=== PATIENT | female | born 1955 | race Caucasian/White ===

== ENCOUNTER 2020-06-01 07:42 | Day surgery (SDC) | payer MEDICARE, BC, SELFPAY ==
[2020-05-24 12:39] VITALS: BMI 31.9
--- NOTE | 2020-05-31 08:36 | HO.ANESPROP2 ---
Documented by User: Haydee Bueno 05/31/20 08:38 HPI - Anesthesia Eval Consult details Narrative: 65yo F for Upper Endoscopy [facility] Past Medical History Medical History Bowel obstruction DVT (deep venous thrombosis) GERD (gastroesophageal reflux disease) History of hemochromatosis Hx of cardiac murmur Hx of diverticulitis of colon Hx of ectopic Lab test negative for COVID-19 virus Surgical History Surgical History H/O colonoscopy History of esophagogastroduodenoscopy (EGD) History of reversal of tubal ligation Hx of section Hx of inguinal hernia repair Hx of total knee replacement Hx of total shoulder replacement Hx of tubal ligation Social History Social History Smoking Status: Never smoker Use of substances other than those prescribed or required for medical reasons: No Advance Directives Information Provided: No Recently lost weight without trying: No Meds Allergies Allergy/AdvReac Type Severity Reaction Status Date / Time No Known Allergies Allergy Verified 05/24/20 12:48 Home Medications Medication Instructions Recorded Confirmed Type acetaminophen [Tylenol] 650 mg PO Q6H PRN 05/24/20 05/24/20 History cholecalciferol (vitamin D3) 50 mcg PO DAILY 05/24/20 05/24/20 History [Vitamin D3] docusate sodium [Stool Softener] 100 mg PO BID 05/24/20 05/24/20 History hydrochlorothiazide 25 mg PO DAILY 05/24/20 05/24/20 History irbesartan 300 mg PO DAILY 05/24/20 05/24/20 History lactobacillus comb no.10 20,000 mmu cells PO DAILY 05/24/20 05/24/20 History [Probiotic] melatonin 10 mg PO BEDTIME 05/24/20 05/24/20 History pantoprazole 40 mg PO BID 05/24/20 05/24/20 History polyethylene glycol 3350 [Miralax] 17 g PO DAILY 05/24/20 05/24/20 History sertraline [Zoloft] 50 mg PO BEDTIME 05/24/20 05/24/20 History Exam Exam Date and Time: May 31, 2020 0836 Height,Weight and Vital Signs: Height 5 ft 1 in Weight 76.657 kg Assessment and Plan Assessment Anesthesia Assessment: Chart Reviewed Documented by User: Zechariah Tejada MD 06/01/20 07:52 [facility] Past Medical History Medical History Bowel obstruction DVT (deep venous thrombosis) GERD (gastroesophageal reflux disease) History of hemochromatosis Hx of cardiac murmur Hx of diverticulitis of colon Hx of ectopic Lab test negative for COVID-19 virus Surgical History Surgical History H/O colonoscopy History of esophagogastroduodenoscopy (EGD) History of reversal of tubal ligation Hx of section Hx of inguinal hernia repair Hx of total knee replacement Hx of total shoulder replacement Hx of tubal ligation Social History Social History Smoking Status: Never smoker Use of substances other than those prescribed or required for medical reasons: No Advance Directives Information Provided: No Recently lost weight without trying: No Meds Allergies Allergy/AdvReac Type Severity Reaction Status Date / Time No Known Allergies Allergy Verified 05/24/20 12:48 Home Medications Medication Instructions Recorded Confirmed Type acetaminophen [Tylenol] 650 mg PO Q6H PRN 05/24/20 05/24/20 History cholecalciferol (vitamin D3) 50 mcg PO DAILY 05/24/20 05/24/20 History [Vitamin D3] docusate sodium [Stool Softener] 100 mg PO BID 05/24/20 05/24/20 History hydrochlorothiazide 25 mg PO DAILY 05/24/20 05/24/20 History irbesartan 300 mg PO DAILY 05/24/20 05/24/20 History lactobacillus comb no.10 20,000 mmu cells PO DAILY 05/24/20 05/24/20 History [Probiotic] melatonin 10 mg PO BEDTIME 05/24/20 05/24/20 History pantoprazole 40 mg PO BID 05/24/20 05/24/20 History polyethylene glycol 3350 [Miralax] 17 g PO DAILY 05/24/20 05/24/20 History sertraline [Zoloft] 50 mg PO BEDTIME 05/24/20 05/24/20 History Exam Airway Mallampati Class: II TM Dist: >3cm Neck ROM: Full Loose/Missing/Broken Teeth: No Heart: RRR Lungs: NL Other: AO Assessment and Plan Assessment Anesthesia Assessment: Anesthesia Plan Discussed and Chart Reviewed Final Anesthetic Review NPO: Yes ASA Class: III Final Preanesthetic Review: No Changes in Pt Med Stat, Meds/Allgs Chart Reviewed, Consent Obtained/Reviewed and Anes Risks/Benef Reviewed Patient Risk: Intermediate Procedure Risk: Low Anesthetic Plan Anesthetic Plan: MAC: Disposition: Standard PACU
[2020-06-01 08:12] VITALS: BP 119/75; PULSE 77; RESP 18; TEMP 36.5; O2SAT 100
--- NOTE | 2020-06-01 08:12 | MHC.SHP ---
Pre-Procedural Eval Section B Chief Complaint: barretts Details of Present Illness: see H&P no changes Relevant Family History (Specify if Yes): No Relevant Social History: None Present Medications: see Short Stay Collaborative assessment Medical History: No relevant PMH History of Previous Operations: No relevant previous surgery Allergies: Allergies Allergy/AdvReac Type Severity Reaction Status Date / Time No Known Allergies Allergy Verified 05/24/20 12:48 Review of Systems Sugical H&P ROS: Negative: Constitution, Cardiovascular, Respiratory, Neurological, Psychiatric, Hem-Onc, Allergic/Immunologic, Gastrointestinal, Genitourinary, Musculoskeletal, Integumentary, Endocrine and Eyes/Ears/Nose/Throat Exam Surgical H&P Exam: Normal: HEENT, Normal: Heart, Normal: Lungs, Normal: Extremities, Normal: Abdomen, Normal: Skin and Normal: Neurological Plan Diagnosis/Plan: Unchanged I have reviewed the history and physical and performed a pertinent physical examination on my patient. No changes have occurred unless specified.
[2020-06-01] MEDS: Lactated Ringers 1,000 ML 100 ML IVCONT (08:16)
[2020-06-01 08:37] VITALS: BP 107/63; PULSE 85; RESP 16; TEMP 36.6; O2SAT 95
--- NOTE | 2020-06-01 08:41 | PM.OP ---
Brief Operative Note Date of Service: 06/01/20 Pre-op diagnosis: Barretts Post-op diagnosis: same (erosive esophagitis, hiatal hernia) Procedure: egd Surgeon: Carlos Dewey Anesthesia: MAC Estimated blood loss (mL): 5 Pathology: other (antral bxs, gastric polyp bxs, egj bxs) Condition: stable Disposition: PACU
[2020-06-01 08:52] VITALS: BP 106/68; PULSE 74; RESP 17; TEMP 36.6; O2SAT 96
--- NOTE | 2020-06-01 09:14 | HO.POSTANES ---
Post Anesthesia Evaluation Post Anesthesia Evaluation Vital Signs: Vital Signs Temp Pulse Resp BP Pulse Ox 06/01/20 08:52 97.8 F 74 17 106/68 96 06/01/20 08:37 97.8 F 85 16 107/63 95 06/01/20 08:12 97.7 F 77 18 119/75 100 Anesthesia: Monitored Mental Status: Awake Pain Control: Satisfactory Nausea/Vomiting: None Hydration: Adequate Anesthesia-Related Issues: No Anes. Related Issues
--- NOTE | 2020-06-01 09:43 | OP_ITS ---
SURGEON: Carlos Dewey MD INDICATIONS: Erazo's esophagus. PREOPERATIVE DIAGNOSIS: POSTOPERATIVE DIAGNOSIS: PROCEDURE PERFORMED: Upper endoscopy with biopsy. ESTIMATED BLOOD LOSS: COMPLICATIONS: ANESTHESIA: ASSISTANTS: SPECIMENS: MEDICATIONS: Monitored anesthesia care. DESCRIPTION OF PROCEDURE: History and physical performed. The risks and benefits of the procedure were explained to the patient and informed consent was obtained. The patient was placed in the left lateral decubitus position. The Olympus video gastroscope was introduced into the esophagus, stomach, and duodenum. Examination was performed, and the scope was removed. She tolerated the procedure well and was returned to recovery area in stable condition. FINDINGS: Esophagus: The esophagus showed a 10 mm area of ulceration/erosion at the EG junction. There was no active bleeding. Biopsies were obtained from the EG junction. There was a 5 cm hiatal hernia. Stomach: Stomach showed multiple gastric polyps, largest measuring approximately 15 mm, several of these were biopsied. They appeared hyperplastic and were present in the body and fundus. Antral biopsies were also obtained to rule out H pylori. Duodenum: The bulb and second portion were normal. IMPRESSION: 1. Erosive esophagitis. 2. Erazo's esophagus. RECOMMENDATION: Follow up the biopsy results. MD DAVON Faria/MABEL / [id number]
== END 2020-06-01 09:40 | disposition home or self-care (01) ==
PROVIDERS: PCP Internal Medicine; Visit Provider Internal Medicine Gastroenterology
PROC: 0DJ08ZZ Inspection of Upper Intestinal Tract, Via Natural or Artificial Opening Endoscopic (ICD-10-PCS; CPT 43235; principal; 2020-06-01 08:50)
DX: K22.70 Barrett's esophagus without dysplasia (principal); K20.0 Eosinophilic esophagitis; K31.7 Polyp of stomach and duodenum; K44.9 Diaphragmatic hernia without obstruction or gangrene; E83.119 Hemochromatosis, unspecified; Z79.899 Other long term (current) drug therapy
CPT/HCPCS: 43239; 88305; 88342

== ENCOUNTER 2021-03-30 09:26 | Outpatient (REF) | payer MEDICARE, OTHER, SELFPAY ==
--- NOTE | ~2021-03-30 | FL_ITS ---
EXAMINATION: FL BARIUM SWALLOW CLINICAL INFORMATION: Dysphagia COMPARISON: None TECHNIQUE: Barium swallow examination is performed using fluoroscopic evaluation in addition to multiple fluoroscopic spot views. The patient is imaged both upright and prone and using both thick and thin sulfate along with effervescent granules. Barium tablet was also administered. Fluoroscopy time: 1 minutes DAP: 8.2 Gycm2 Images: 44 FINDINGS: The swallowing mechanism is normal. There is minimal laryngeal penetration seen when patient swallows. No aspiration is seen. The esophagus is dilated. There is abnormal esophageal motility. There is a moderate size esophageal hernia probably representing a hiatal hernia. There is significant gastroesophageal reflux. No mass, stricture or mucosal irregularity is appreciated. The barium tablet passed freely into the stomach. FL/FL barium swallow IMPRESSION: Dilated esophagus and abnormal esophageal motility. Small fixed esophageal hernia probably representing a hiatal hernia and gastroesophageal reflux. Mild laryngeal penetration when the patient swallows. No aspiration.
--- NOTE | 2023-09-12 13:49 | MHC.SHP ---
Pre-Procedural Eval Section A - 24 Hr Update-Section A only Date of Service: 09/12/23 The patient is an INPATIENT: No Changes since office visit: No Cold of Flu in the past 2 weeks, No New Medical Problems, No Changes in Medication and No Patient answered all questions The patient has been examined within 24 hours of the surgical procedure. The History & Physical has been completed within 30 days and I have reviewed it.: Yes Section B - Complete if H&P > 30 days Chief Complaint: DYSPHAGIA Allergies: Allergies Allergy/AdvReac Type Severity Reaction Status Date / Time No Known Allergies Allergy Verified 05/24/20 12:48 Plan I have reviewed the history and physical and performed a pertinent physical examination on my patient. No changes have occurred unless specified. Time Spent With Patient Time: Total time managing care of this patient today ____ minutes.
== END 2021-03-30 09:27 | disposition home or self-care (01) ==
LOC: HO.XRAY 09:26
PROVIDERS: PCP Internal Medicine; Visit Provider Internal Medicine Gastroenterology
DX: R13.10 Dysphagia, unspecified (principal)
CPT/HCPCS: 74220

== ENCOUNTER 2023-09-12 13:25 | Day surgery (SDC) | payer MEDICARE, OTHER, SELFPAY ==
--- NOTE | 2023-09-11 08:54 | HO.ANESPROP2 ---
HPI - Anesthesia Eval Consult details Narrative: 68yo F for Upper Endoscopy Hemochromatosis with therapeutic phlebs PMFSH Past Medical History Medical History (Updated 09/10/23 @ 11:04 by Miladis Bhakta RN) Hx of ectopic History of hemochromatosis Bowel obstruction Hx of diverticulitis of colon DVT (deep venous thrombosis) GERD (gastroesophageal reflux disease) Hx of cardiac murmur Surgical History Surgical History (Updated 09/10/23 @ 11:02 by Miladis Bhakta RN) Hx of inguinal hernia repair History of reversal of tubal ligation Hx of tubal ligation Hx of section Hx of total knee replacement Hx of total shoulder replacement History of esophagogastroduodenoscopy (EGD) H/O colonoscopy Meds Allergies Allergy/AdvReac Type Severity Reaction Status Date / Time No Known Allergies Allergy Verified 05/24/20 12:48 Home Medications ?Medication ?Instructions ?Recorded ?Confirmed ?Last Taken ?Type acetaminophen 325 mg tablet 650 mg PO Q6H PRN Pain 05/24/20 05/24/20 Unknown History (Tylenol) cholecalciferol (vitamin D3) 50 50 mcg PO DAILY 05/24/20 05/24/20 Unknown History mcg (2,000 unit) capsule (Vitamin D3) docusate sodium 100 mg capsule 100 mg PO BID 05/24/20 05/24/20 Unknown History (Stool Softener) hydrochlorothiazide 25 mg tablet 25 mg PO DAILY 05/24/20 05/24/20 Unknown History irbesartan 300 mg tablet 300 mg PO DAILY 05/24/20 05/24/20 Unknown History lactobacillus comb no.10 20 20,000 mmu cells PO DAILY 05/24/20 05/24/20 Unknown History billion cell capsule (Probiotic) melatonin 10 mg tablet 10 mg PO BEDTIME 05/24/20 05/24/20 Unknown History pantoprazole 40 mg tablet,delayed 40 mg PO BID 05/24/20 06/01/20 06/01/20 06:45 History release polyethylene glycol 3350 17 gram 17 g PO DAILY 05/24/20 05/24/20 Unknown History oral powder packet (Miralax) sertraline 50 mg tablet (Zoloft) 50 mg PO BEDTIME 05/24/20 05/24/20 Unknown History Exam Height,Weight and Vital Signs: Height 5 ft 1 in Assessment and Plan Assessment Anesthesia Assessment: Chart Reviewed
[2023-09-12 13:54] VITALS: BMI 32.9
[2023-09-12 13:59] VITALS: BP 128/73; PULSE 63; RESP 16; TEMP 36.9; O2SAT 97
--- NOTE | 2023-09-12 14:03 | PC.NURSE ---
IV insertions by Ewa Mcrae RN
--- NOTE | 2023-09-12 14:50 | P.CONAN_ITS ---
[facility] Past Medical History Medical History Hx of ectopic History of hemochromatosis Bowel obstruction Hx of diverticulitis of colon DVT (deep venous thrombosis) GERD (gastroesophageal reflux disease) Hx of cardiac murmur Family History Family history of problems with anesthesia: No Surgical History Surgical History Hx of inguinal hernia repair History of reversal of tubal ligation Hx of tubal ligation Hx of section Hx of total knee replacement Hx of total shoulder replacement History of esophagogastroduodenoscopy (EGD) H/O colonoscopy History of Problems with Anesthesia: No Social History Social History Patient Tobacco Use Status: Never used Tobacco Use of substances other than those prescribed or required for medical reasons: No Are you DNR?: No Advance Directives: No Advance Directives Information Provided: Yes Meds Allergies Allergy/AdvReac Type Severity Reaction Status Date / Time No Known Allergies Allergy Verified 05/24/20 12:48 Active Medications: Current Medications Lactated Ringer's (Lr) 1,000 mls @ 100 mls/hr IVCONT .Q10H PROMISE Home Medications ?Medication ?Instructions ?Recorded ?Confirmed ?Last Taken ?Type acetaminophen 325 mg tablet 650 mg PO Q6H PRN Pain 05/24/20 05/24/20 Unknown History (Tylenol) cholecalciferol (vitamin D3) 50 50 mcg PO DAILY 05/24/20 05/24/20 Unknown History mcg (2,000 unit) capsule (Vitamin D3) docusate sodium 100 mg capsule 100 mg PO BID 05/24/20 05/24/20 Unknown History (Stool Softener) hydrochlorothiazide 25 mg tablet 25 mg PO DAILY 05/24/20 05/24/20 Unknown History lactobacillus comb no.10 20,000 mmu cells PO DAILY 05/24/20 05/24/20 Unknown History billion cell capsule (Probiotic) melatonin 10 mg tablet 10 mg PO BEDTIME 05/24/20 05/24/20 Unknown History polyethylene glycol 3350 17 gram 17 g PO DAILY 05/24/20 05/24/20 Unknown History oral powder packet (Miralax) sertraline 50 mg tablet (Zoloft) 50 mg PO BEDTIME 05/24/20 05/24/20 Unknown History omeprazole 40 mg capsule,delayed 40 mg PO DAILY 09/12/23 09/12/23 Unknown History release Exam Height,Weight and Vital Signs: Height 5 ft 1 in Weight 78.925 kg Last Vital Signs Temp 98.4 F 09/12/23 13:59 Pulse 63 09/12/23 13:59 Resp 16 09/12/23 13:59 BP 128/73 09/12/23 13:59 Pulse Ox 97 09/12/23 13:59 O2 Del Method Room Air 09/12/23 13:59 Airway Mallampati Class: II TM Dist: >3cm Neck ROM: Full Heart: rrr Assessment and Plan Final Anesthetic Review Family History of Problems with Anesthesia: No History of Problems with Anesthesia: No NPO: Yes ASA Class: II Final Preanesthetic Review: No Changes in Pt Med Stat, Meds/Allgs Chart Reviewed, Consent Obtained/Reviewed and Anes Risks/Benef Reviewed Patient Risk: Intermediate Procedure Risk: Low Anesthetic Plan Anesthetic Plan: MAC: Disposition: Standard PACU
[2023-09-12] MEDS: Lactated Ringers 1,000 ML 100 ML IVCONT (15:07)
--- NOTE | 2023-09-12 15:12 | MHC.SHP ---
Pre-Procedural Eval Section A - 24 Hr Update-Section A only Date of Service: 09/12/23 The patient is an INPATIENT: No Changes since office visit: No Cold of Flu in the past 2 weeks, No New Medical Problems, No Changes in Medication and No Patient answered all questions The patient has been examined within 24 hours of the surgical procedure. The History & Physical has been completed within 30 days and I have reviewed it.: Yes Section B - Complete if H&P > 30 days Chief Complaint: Erazo's esophagus,epigastric pain Allergies: Allergies Allergy/AdvReac Type Severity Reaction Status Date / Time No Known Allergies Allergy Verified 05/24/20 12:48 Plan I have reviewed the history and physical and performed a pertinent physical examination on my patient. No changes have occurred unless specified. Time Spent With Patient Time: Total time managing care of this patient today ____ minutes.
[2023-09-12 15:40] VITALS: BP 117/68; PULSE 65; RESP 18; TEMP 36.4; O2SAT 94
[2023-09-12 15:55] VITALS: BP 133/83; PULSE 60; RESP 20; TEMP 36.6; O2SAT 97
--- NOTE | 2023-09-12 21:47 | OP_ITS ---
DATE OF SERVICE: 09/12/2023 SURGEON: Carlos Dewey MD INDICATIONS: Erazo esophagus and epigastric pain. PREOPERATIVE DIAGNOSIS: POSTOPERATIVE DIAGNOSIS: PROCEDURE PERFORMED: Upper endoscopy with biopsy. ESTIMATED BLOOD LOSS: COMPLICATIONS: ANESTHESIA: Monitored anesthesia care. ASSISTANTS: SPECIMENS: DESCRIPTION OF PROCEDURE: A history and physical was performed. The risks and benefits of the procedure were explained to the patient, and informed consent was obtained. The patient was placed in the left lateral decubitus position. The Olympus video gastroscope was introduced into the esophagus, stomach, and duodenum. Examination was performed. The scope was removed. She tolerated the procedure well and was returned to the recovery area in stable condition. FINDINGS: Esophagus: The esophagus was normal. There was no mass lesion. There was a less than 2 cm segment of Erazo esophagus tissue with no associated esophagitis or raised areas. Biopsies were obtained from the EG junction. There was a small sliding hiatal hernia. Stomach: The stomach showed multiple benign-appearing polyps. Two of these were biopsied in the body on the greater curvature. The largest measured approximately 8 to 10 mm. Antral biopsies were also obtained. Duodenum: The bulb and 2nd portion were normal. IMPRESSION: 1. Erazo esophagus. 2. Gastric polyps. RECOMMENDATION: Follow up the biopsy results. MD DAVON Faria/MABEL / [id number]
== END 2023-09-12 16:02 | disposition home or self-care (01) ==
PROVIDERS: PCP Internal Medicine; Visit Provider Internal Medicine Gastroenterology
PROC: 0DJ08ZZ Inspection of Upper Intestinal Tract, Via Natural or Artificial Opening Endoscopic (ICD-10-PCS; CPT 43235; principal; 2023-09-12 14:40)
DX: K22.70 Barrett's esophagus without dysplasia (principal); R10.13 Epigastric pain; K31.7 Polyp of stomach and duodenum; K44.9 Diaphragmatic hernia without obstruction or gangrene; K21.9 Gastro-esophageal reflux disease without esophagitis; I10 Essential (primary) hypertension; K57.30 Diverticulosis of large intestine without perforation or abscess without bleeding; Z79.899 Other long term (current) drug therapy; Z90.49 Acquired absence of other specified parts of digestive tract; Z98.890 Other specified postprocedural states
CPT/HCPCS: 43239; 88305; 88313; 88342; J2704

== ENCOUNTER 2025-03-31 08:19 | Day surgery (SDC) | payer MEDICARE, OTHER, SELFPAY ==
--- OUTSIDE RECORDS SUMMARY | 2023-09-12 10:00 | XMS_ITS ---
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 Problem Benign neoplasm of stomach (78506569) Gastric polyps (K31.7) Active confirmed Encounters Encounter Location Date Provider [place] [facility] [place] [facility] [address] [place] [id number] 09/12/2023 Carlos Dewey Jr Dyer''s esophagus without dysplasia K22.70 ; Gastric polyps K31.7 and Epigastric pain R10.13 Assessments Encounter Date Diagnosis (ICD Code) Assessment Notes Treatment Notes Treatment Clinical Notes Section Notes 09/12/2023 Dyer''s esophagus without dysplasia (ICD-10 - K22.70) 09/12/2023 Gastric polyps (ICD-10 - K31.7) 09/12/2023 Epigastric pain (ICD-10 - R10.13) Plan Of Treatment Next Appt Details Provider Name:Carlos acosta Jr, 03/13/2025 09:10:00 AM, [address] [place] [address], [phone], Provider Name:Carlos acosta Jr, 10/21/2025 09:20:00 AM, [address] [place] [address], [address], [place], [address], Progress Notes * LUCY JANSENOB:[birth year] (69 yo F)Acc No.[id number]:09/12/2023 EGD/MAC Patient: RADHA HOLBROOK Provider: Barry Dewey MD :1955 A ge:68 Y S ex:Female Date:09/12/2023 Address:[address] [place], [place] [id number] Pcp:Michael Evans MD Subjective: * Chief Complaints: * 1 . Dyer's ,epigastric pain. * Medical History: Objective: * Vitals: Assessment: * Assessment: 1. B arrett''s esophagus without dysplasia - K22.70 (Primary) 2 . G astric polyps - K31.7 3 . E pigastric pain - R10.13 Plan: * Treatment: * Procedure Codes: 4 3239 UPPER GI ENDOSCOPY, BIOPSY * * The named appointment provid er may or may not be the originator of this progress note, and it is not deemed complete until electronically signed by the appointment provider. Sign off status: Pending * Provider: Barry Dewey MD Date: 0 09/12/2023 Generated for Claire mckeon/Bill/Ottoitting on: 0 02/11/2025 03:55 PM EDT
--- OUTSIDE RECORDS SUMMARY | 2025-02-11 15:55 | XMS_ITS | Patient Health Record ---
[facility] Address [address] [place] [address] Care Team Providers Care Night Warehouse Manager Name Role Phone Cristina Grayson MD, Michael Primary Care Provider Unavail able Kathy Sullivan Unavailable [phone] Reason For Referral No Information Medications Medication SIG (Take, Route, Frequency, Duration) Notes Start Date End Date Status Calcium Active Multi Vitamin Active Stool Softener Activ e Probiotic Active Sertraline HCl 50 MG 1 tablet Orally Onc e a day Active LamISIL 250 MG 1 tablet Orally Once a day for 7 days stop for 3 weeks repeat cycle for 12 months; Duration: 60 days 07/20/2017 Not-Taking Pantoprazole Sodium 40 MG 1 tablet Orall y Once a day Active Irbesartan 300 MG 1 tablet Orally Once a day Active Social History Tobacco Use: Social History Observation Description Date Details (start date - stop date) Never Smoker NA - NA Tobacco Use/Smoking Question Answer Notes Are you a: nonsmoker Additional Findings: Tobacco Non-User Current no n-smoker Alcohol Screen Question Answer Notes Did you have a drink containing alcohol in the p ast year? No Points 0 Interpretation Negative Tobacco use other than smoking: Question Answer Notes Are you an other tobacco user? No Problems No Known Problems Plan Of Treatment Pending Test Test Name Order Date *Liver Function Test (LFT) 06/29/2017 [id number] NAIL, 6 OR MORE 06/29/2017 [id number] NAIL, 6 OR MORE 09/25/2018 [id number] Plate 06/29/2017 [id number] Plate 09/25/2018 Insurance Providers Payer Name Payer Address Payer Phone Subscriber Number Group Number Insured Name Patient Relationship to Insured Coverage Start Date Coverage End Date [facility] [address] [place] [address] [id number] Farzana Alejandro Self - patient is the insured Medical (General) History Medical History History ICD Code Arthritis Back,Hip,and Knee pain Diverticulosis High blood pressure Reflux ( GERD) Measles Chicken pox Surgical History Surgery Date(Month/Year) 4 c sections tubal reversal diverticulitis hernia breast surgery
--- OUTSIDE RECORDS SUMMARY | 2025-02-11 15:56 | XMS_ITS | Patient Health Record ---
Author Organization [facility] Address [address] [place] [address] Care Team Providers Care Warehouse Selector Name Role Phone Michael Evans MD Primary Care Provider Carlos Lozano Jr Unavailable Allergies No Known Allergies Reason For Referral No Information Medications Medication SIG (Take, Route, Frequency, Duration) Notes Start Date End Date Status Valsartan 40 MG 1 tablet Orally Twic e a day Active Aspirin 81 81 MG 1 tablet Orally Once a day Active Metoprolol Succinate ER 25 MG 1 tablet Oral Once a day for 30 days Active Rosuvastatin Calcium 20 MG 1 tablet Orally Once a day Active MiraLax Active Stool Softener Activ e Probiotic - Orally Active Vitamin D3 50 MCG (1999 UT) 2 tab Orally Once a day Acti ve One A Day Women 50 Plus - as directed Orally Active Famotidine 20 MG 1 tablet at bedtime as needed Orally Once a day for 30 day(s) Active Wegovy 0.25 MG/0.5ML 0.5 mL Subcutaneous for 30 day(s) Active Omeprazole 40 mg TAKE 1 CAPSULE DAILY 30 MINUTES BEFORE MORNING MEAL Active Candesartan Cilexetil 32 MG 1 tablet Orally Once a day for 30 day(s) Active Immunizations Vaccine Route Administration Date Status Comme nts Influenza Unknown 02/18/2020 Administered Influenza Unknown 2021 Administered Influenza Unknown 04/25/2022 Administered Influenza Unknown 04/04/2023 Administered Influenza Unknown 04/09/2024 Administered Social History Tobacco Use: Social History Observation Description Date Details (start date - stop date) Never Smoker NA - NA Tobacco Use/Smoking Question Answer Notes Patient is a nonsmoker Alcohol Screen Question Answer Notes Did you have a drink containing alcohol in the p ast year? 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) Active confirmed Problem 10298295 Cough (R05) Active confirmed Problem 273543049 Gastroesophageal reflux disease without esophagitis (K21.9) Active confirmed Problem 29761611 Hiatal hernia (K44.9) Active confirmed Problem Benign neoplasm of stomach (06330524) Gastric polyps (K31.7) Active confirmed Problem 38216753 Dysphagia, unspecified type (R13.10) Active confirmed Problem Erazo's esophagus (242989155) Erazo''s esophagus without dysplasia (K22.70) Active confirmed Vital Signs Temperature 97.3 degrees Fahrenheit 10/20/2024 Blood pressure diastolic 01 mm Hg 10/20/2024 Height 61 in 10/20/2024 Blood pressure systolic 001 mm Hg 10/20/2024 Weight 177.2 lbs 10/20/2024 BMI 33.48 kg/m2 10/20/2024 Encounters Encounter Location Date Provider Diagnosis [facility] [address] [place] [phone] 04/23/2024 Carlos Dewey Jr Erazo's esophagus without dysplasia K22.70 and Colon cancer screening Z12.11 [facility] [address] [place] [phone] 10/20/2024 Carols Dewey Jr Erazo's esophagus without dysplasia K22.70 and Colon cancer screening Z12.11 [facility] [address] [place] [phone] 02/11/2025 Carlos Dewey Jr Assessments Encounter Date Diagnosis (ICD Code) Assessment Notes Treatment Notes Treatment Clinical Notes Section Notes 04/23/2024 Colon cancer screening (ICD-10 - Z12.11) Farzana is doing well. She will continue omeprazole. We discussed diet, lifestyle modifications, and weight management regarding the treatment of reflux. She will stop famotidine in the evening and see if her reflux remain under good control. Colon cancer screening will be addressed at her followup visit in 6 months when she will be due for repeat colonoscopy. She'll call she has problems before then. 04/23/2024 Erazo's esophagus without dysplasia (ICD-10 - K22.70) Erazo esophagus material was printed Farzana is doing well. She will continue omeprazole. We discussed diet, lifestyle modifications, and weight management regarding the treatment of reflux. She will stop famotidine in the evening and see if her reflux remain under good control. Colon cancer screening will be addressed at her followup visit in 6 months when she will be due for repeat colonoscopy. She'll call she has problems before then. 10/20/2024 Colon cancer screening (ICD-10 - Z12.11) Currently, she is doing well with her GI issues. She will continue her present regimen for reflux. We discussed diet, lifestyle modifications, and weight management regarding the treatment of reflux. Will see her in follow-up for colonoscopy after she is cleared from a cardiac standpoint. She will need to stop aspirin and GLP-1's 1 week before the procedure. We reviewed this today. Today's visit was 30 minutes. 10/20/2024 Erazo's esophagus without dysplasia (ICD-10 - K22.70) Currently, she is doing well with her GI issues. She will continue her present regimen for reflux. We discussed diet, lifestyle modifications, and weight management regarding the treatment of reflux. Will see her in follow-up for colonoscopy after she is cleared from a cardiac standpoint. She will need to stop aspirin and GLP-1's 1 week before the procedure. We reviewed this today. Today's visit was 30 minutes. Plan Of Treatment Pending Test Test Name Order Date XR BARIUM SWALLOW-ESOPHAGUS 03/02/2021 OCCULT BLOOD STOOL 01/31/2021 Future Test Test Name Order Date UPPER GI ENDOSCOPY 03/24/2020 UPPER GI ENDOSCOPY 09/03/2023 COLONOSCOPY 10/20/2024 Next Appt Details Provider Name:Carlos acosta Jr, 03/13/2025 09:10:00 AM, [address] , [place], [place], [id number], Provider Name:Carlos acosta Jr, 10/21/2025 09:20:00 AM, [address] [place] [address], [address], [place], [phone], Insurance Providers Payer Name Payer Address Payer Phone Subscriber Number Group Number Insured Name Patient Relationship to Insured Coverage Start Date Coverage End Date MEDICARE OF [place] [address] [place] [id number] NABOR De La Garza FARZANA Self - patient is the insured FOR LIFE [address] [place] [id number] NABOR De La GarzaSHARIAN Self - patient is the insured Medical (General) History Medical History History ICD Code hypertension gastroesophageal reflux dise ase/Erazo's esophagus, endoscopy 05/04/22, no biopsies obtained from the EG junction constipation colonoscopy 12/03/14 while hos pitalized for diarrhea. Findings included moderate diverticulosis, surgical sigmoid anastomosis and normal mucosa. Biopsies showed a mild acute patchy colitis. Ten-year colon recall Hemachromatosis KAYLEIGH/CPAP Myocardial infarction 07/29, cardiac cath eterization, no stenting required Surgical History Surgery Date(Month/Year) Hiatal hernia repair/fundoplication 12/24 rotator cuff x 2 cataract removal - bilateral right shoulder replacement left knee replacement tubal ligation and reversal diverticulitis status post sigmoid resec tion right knee replacement x 2 hysterectomy section Hospitalization History Reason Date(Month/Year) bowel blockage 8 years ago
--- NOTE | 2025-03-27 13:08 | HO.ANESPROP2 ---
HPI - Anesthesia Eval Consult details Narrative: 70yo F for Colonoscopy Hemachromatosis w/ therapeutic phlebs - ? last PMFSH Past Medical History Medical History (Updated 03/27/25 @ 15:45 by Tasha Palacios, RUCHI) KAYLEIGH on CPAP GERD (gastroesophageal reflux disease) HTN (hypertension) Myocardial infarct (~07/2024) Hx of ectopic History of hemochromatosis (03/25/25) Bowel obstruction Hx of diverticulitis of colon DVT (deep venous thrombosis) GERD (gastroesophageal reflux disease) (05/04/22) Hx of cardiac murmur Family History Family history of problems with anesthesia: No Surgical History Surgical History (Updated 03/27/25 @ 15:58 by Tasha Palacios RN) Hx of esophageal hernia repair (12/2022) History of cardiac cath Hx of inguinal hernia repair History of reversal of tubal ligation Hx of tubal ligation Hx of section Hx of total knee replacement Hx of total shoulder replacement History of esophagogastroduodenoscopy (EGD) H/O colonoscopy History of Problems with Anesthesia: No Social History Social History (Updated 03/27/25 @ 15:46 by Tasha Palacios, RUCHI) Household Members: Family Housing: House Are you a primary adult day care worker to a significant other at home: No Do you presently have visiting nurse or other home services: No Patient Tobacco Use Status: Never used Tobacco Use of substances other than those prescribed or required for medical reasons: No Have you been hit, kicked, punched, or otherwise hurt by someone within the past year? If so, by whom?: No Are you DNR?: No Advance Directives: No (will bring dos) Advance Directives Information Provided: Yes Advance Directives on File: No Meds Allergies Allergy/AdvReac Type Severity Reaction Status Date / Time No Known Allergies Allergy Verified 03/27/25 15:46 Home Medications ?Medication ?Instructions ?Recorded ?Confirmed ?Last Taken ?Type acetaminophen 325 mg tablet 650 mg PO Q6H PRN Pain 05/24/20 03/27/25 Unknown History (Tylenol) cholecalciferol (vitamin D3) 50 50 mcg PO DAILY 05/24/20 03/27/25 Unknown History mcg (2,000 unit) capsule (Vitamin D3) docusate sodium 100 mg capsule 100 mg PO BID 05/24/20 03/27/25 Unknown History (Stool Softener) lactobacillus comb no.10 20 20,000 mmu cells PO DAILY 05/24/20 03/27/25 Unknown History billion cell capsule (Probiotic) polyethylene glycol 3350 17 gram 17 g PO DAILY 05/24/20 03/27/25 Unknown History oral powder packet (Miralax) aspirin 81 mg tablet 81 mg PO DAILY 03/27/25 03/27/25 Unknown History candesartan 32 mg tablet 32 mg PO DAILY 03/27/25 03/27/25 Unknown History famotidine 20 mg tablet 20 mg PO DAILY 03/27/25 03/27/25 Unknown History metoprolol succinate 25 mg 25 mg PO DAILY 03/27/25 03/27/25 Unknown History tablet,extended release 24 hr omeprazole 40 mg capsule,delayed 40 mg PO DAILY 03/27/25 03/27/25 Unknown History release rosuvastatin 20 mg tablet 20 mg PO BEDTIME 03/27/25 03/27/25 Unknown History valsartan 40 mg tablet 40 mg PO BID 03/27/25 03/27/25 Unknown History Assessment and Plan Assessment Anesthesia Assessment: Chart Reviewed Final Anesthetic Review Family History of Problems with Anesthesia: No History of Problems with Anesthesia: No
[2025-03-27 15:49] VITALS: BMI 36.3
[2025-03-31 09:02] VITALS: BP 137/77; PULSE 69; RESP 16; TEMP 36.8; O2SAT 97
[2025-03-31] MEDS: Lactated Ringers 1,000 ML 100 ML IVCONT (09:04)
--- NOTE | 2025-03-31 10:08 | MHC.SHP ---
Pre-Procedural Eval Section A - 24 Hr Update-Section A only Date of Service: 03/31/25 The patient is an INPATIENT: No Changes since office visit: No Cold of Flu in the past 2 weeks, No New Medical Problems, No Changes in Medication and No Patient answered all questions The patient has been examined within 24 hours of the surgical procedure. The History & Physical has been completed within 30 days and I have reviewed it.: No Section B - Complete if H&P > 30 days Chief Complaint: screening Details of Present Illness: see H&P no changes Relevant Family History (Specify if Yes): No Relevant Social History: None Present Medications: see Short Stay Collaborative assessment Medical History: No relevant PMH History of Previous Operations: No relevant previous surgery Allergies: Allergies Allergy/AdvReac Type Severity Reaction Status Date / Time No Known Allergies Allergy Verified 03/27/25 15:46 Review of Systems Sugical H&P ROS: Negative: Constitution, Cardiovascular, Respiratory, Neurological, Psychiatric, Hem-Onc, Allergic/Immunologic, Gastrointestinal, Genitourinary, Musculoskeletal, Integumentary, Endocrine and Eyes/Ears/Nose/Throat Exam Surgical H&P Exam: Normal: HEENT, Normal: Heart, Normal: Lungs, Normal: Extremities, Normal: Abdomen, Normal: Skin and Normal: Neurological Plan Diagnosis/Plan: Unchanged I have reviewed the history and physical and performed a pertinent physical examination on my patient. No changes have occurred unless specified. Time Spent With Patient Time: Total time managing care of this patient today ____ minutes.
[2025-03-31 10:50] VITALS: BP 93/37; PULSE 66; RESP 16; TEMP 36.8; O2SAT 98
[2025-03-31 11:05] VITALS: BP 116/55; PULSE 64; RESP 18; TEMP 36.9; O2SAT 98
--- NOTE | 2025-03-31 11:52 | OP_ITS ---
DATE OF SERVICE: 03/31/2025 SURGEON: Carlos Dewey MD INDICATIONS: Colon cancer screening. PREOPERATIVE DIAGNOSIS: POSTOPERATIVE DIAGNOSIS: PROCEDURE PERFORMED: Colonoscopy to the cecum with biopsy. ESTIMATED BLOOD LOSS: COMPLICATIONS: ANESTHESIA: Monitored anesthesia care. ASSISTANTS: SPECIMENS: DESCRIPTION OF PROCEDURE: A history and physical performed. The risks and benefits of the procedure were explained to the patient. Informed consent was obtained. The patient was placed in the left lateral decubitus position. A digital rectal exam was performed and was found to be normal. The Olympus pediatric video colonoscope was introduced into the rectum and advanced to the cecum. The cecum was identified by transillumination, palpation, and identification of ileocecal valve. Examination was performed. The scope was removed. She tolerated the procedure well, was returned to recovery in stable condition. FINDINGS: The terminal ileum was not examined. The visualized colonic mucosa was within normal limits. There was mae-diverticulosis. A small polyp measuring less than 5 mm was removed with a biopsy forceps located at 65 cm from the anal verge. No other polyps were identified. Retroflexed examination showed internal hemorrhoids. RECOMMENDATION: Follow up the biopsy results. MD DAVON Faria/MABEL / [id number] MTDD
== END 2025-03-31 11:42 | disposition home or self-care (01) ==
PROVIDERS: PCP Internal Medicine; Visit Provider Internal Medicine Gastroenterology
PROC: 0DJD8ZZ Inspection of Lower Intestinal Tract, Via Natural or Artificial Opening Endoscopic (ICD-10-PCS; CPT 45378; principal; 2025-03-31 10:00)
DX: Z12.11 Encounter for screening for malignant neoplasm of colon (principal); D12.3 Benign neoplasm of transverse colon
CPT/HCPCS: 45380; 88305; J2003; J2704